=== PATIENT | male | born 1965 | race Caucasian/White ===

== ENCOUNTER 2017-05-14 16:42 | Inpatient (IN) | payer SELFPAY ==
[~2017-05-14] VITALS: Ht 180.3 cm; Wt 100.8 kg
[2017-05-14] MEDS ORDERED: normal saline 1000ML IV soln IVB ONE ×2 (17:00→18:35)
[2017-05-14 17:52] LABS: BASOPHILS # (AUTO) 0.1 X10'3 (0-0.2); EOSINOPHILS # (AUTO) 0.2 X10'3 (0-0.9); EOSINOPHILS % (AUTO) 2.3 % (0-6); HEMATOCRIT 33.9 % (42.0-52.0); HEMOGLOBIN 11.7 g/dl (14.0-17.9); LYMPHOCYTES # (AUTO) 1.3 X10'3 (1.1-4.8); LYMPHOCYTES % (AUTO) 16.3 % (21-51); MEAN CORPUSCULAR HEMOGLOBIN 34.1 PG (27.0-31.0); MEAN CORPUSCULAR HGB CONC 34.4 % (33.0-36.5); MEAN CORPUSCULAR VOLUME 99.1 FL (78-98); MEAN PLATELET VOLUME 7.7 FL (7.4-10.4); MONOCYTES # (AUTO) 0.9 X10'3 (0-0.9); MONOCYTES % (AUTO) 11.1 % (2-12); NEUTROPHILS # (AUTO) 5.6 X10'3 (1.8-7.7); NEUTROPHILS % (AUTO) 69.3 % (42-75); PLATELET COUNT 176 X10'3 (140-440); RED BLOOD COUNT 3.42 X10'6 (4.70-6.10); RED CELL DISTRIBUTION WIDTH 13.9 % (11.5-14.5)
[2017-05-14 17:53] LABS: CLARITY,URINE Clear (Clear); COLOR,URINE Yellow (Yellow); GLUCOSE, URINE 250 mg/dl (Neg); KETONES,URINE Negative (Neg); LEUKOCYTE ESTERASE ,URINE Negative (Neg); NITRITES, URINE Negative (Neg); OCCULT BLOOD,URINE Negative (Neg); PROTEIN,URINE Trace mg/dl (Neg); UROBILINOGEN,URINE 0.2 E.U/dL (0.2-1.0)
[2017-05-14 17:56] LABS: UA COLLECTION TYPE CLN CATCH MIDSTREAM
[2017-05-14 18:05] LABS: BACTERIA,URINE NONE SEEN /HPF (Neg); RBC,URINE NONE SEEN /HPF (0-2); SQUAMOUS EPITHELIAL CELL,UR NONE SEEN /LPF (FEW); WBC,URINE 0-4 /HPF (0-4)
[2017-05-14 18:05] LABS: ALANINE AMINOTRANSFERASE 58 U/L (12-78); ALBUMIN 3.5 G/DL (3.4-5.0); ALBUMIN/GLOBULIN RATIO 1.1 (1.1-1.5); ALKALINE PHOSPHATASE 56 IU/L (46-116); ANION GAP 13 (8-16); ASPARTATE AMINO TRANSFERASE 17 U/L (10-37); BILIRUBIN,TOTAL 0.3 MG/DL (0.1-1.0); BLOOD UREA NITROGEN 133 MG/DL (7-18); CALCIUM 8.2 MG/DL (8.5-10.1); CHLORIDE 103 MMOL/L (99-107); CREATININE 5.11 MG/DL (0.60-1.10); GLUCOSE 120 MG/DL (70-104); POTASSIUM 4.2 MMOL/L (3.5-5.1); SODIUM 140 MMOL/L (135-145); TOTAL CARBON DIOXIDE 24.2 MMOL/L (24-32); TOTAL PROTEIN 6.7 G/DL (6.4-8.2); eGFR 12 ML/MIN
[2017-05-14 18:06] LABS: MUCUS STRANDS NONE SEEN /LPF (Neg)
[2017-05-14] MEDS ORDERED: NO HOME MEDS (20:39)
[2017-05-14] MEDS ORDERED: acetaminophen 325mg tablet PO PRN (21:00)
[2017-05-14] MEDS ORDERED: ondansetron/PF 4mg/2ml inj IV PRN (21:00)
[2017-05-14] MEDS: normal saline 1000ml 1,000 ML IV SCH (21:06)
[2017-05-14 23:15] VITALS: BP 97/68
[2017-05-15 05:44] LABS: BASOPHILS # (AUTO) 0.1 X10'3 (0-0.2); BASOPHILS % (AUTO) 1.4 % (0-1); EOSINOPHILS # (AUTO) 0.4 X10'3 (0-0.9); EOSINOPHILS % (AUTO) 4.7 % (0-6); HEMATOCRIT 31.6 % (42.0-52.0); HEMOGLOBIN 10.8 g/dl (14.0-17.9); LYMPHOCYTES # (AUTO) 2.2 X10'3 (1.1-4.8); LYMPHOCYTES % (AUTO) 29.1 % (21-51); MEAN CORPUSCULAR HEMOGLOBIN 34.1 PG (27.0-31.0); MEAN CORPUSCULAR HGB CONC 34.1 % (33.0-36.5); MEAN CORPUSCULAR VOLUME 100.2 FL (78-98); MEAN PLATELET VOLUME 8.2 FL (7.4-10.4); MONOCYTES # (AUTO) 0.8 X10'3 (0-0.9); MONOCYTES % (AUTO) 10.7 % (2-12); NEUTROPHILS % (AUTO) 54.1 % (42-75); PLATELET COUNT 157 X10'3 (140-440); RED BLOOD COUNT 3.16 X10'6 (4.70-6.10); RED CELL DISTRIBUTION WIDTH 13.8 % (11.5-14.5); WHITE BLOOD COUNT 7.4 X10'3 (4.5-11.0)
[2017-05-15 05:56] LABS: ALBUMIN 3.2 G/DL (3.4-5.0); ANION GAP 11 (8-16); BLOOD UREA NITROGEN 113 MG/DL (7-18); BUN/CREATININE RATIO 31.4 (5.4-32.0); CALCIUM 7.7 MG/DL (8.5-10.1); CHLORIDE 108 MMOL/L (99-107); GLUCOSE 95 MG/DL (70-104); POTASSIUM 4.3 MMOL/L (3.5-5.1); SODIUM 143 MMOL/L (135-145); TOTAL CARBON DIOXIDE 23.7 MMOL/L (24-32); eGFR 18 ML/MIN
[2017-05-15 06:00] VITALS: BP 107/66
[2017-05-15] MEDS: normal saline 1000ml 1,000 ML IV SCH ×2 (07:36→16:59)
[2017-05-15 11:00] VITALS: BP 92/55
[2017-05-15 15:28] LABS: CLARITY,URINE CLEAR (Clear); COLOR,URINE STRAW (Yellow); GLUCOSE, URINE 500 mg/dl (Neg); KETONES,URINE NEGATIVE (Neg); LEUKOCYTE ESTERASE ,URINE NEGATIVE (Neg); NITRITES, URINE NEGATIVE (Neg); OCCULT BLOOD,URINE NEGATIVE (Neg); PH,URINE 5.5 (4.8-8.0); PROTEIN,URINE NEGATIVE (Neg); UROBILINOGEN,URINE 0.2 E.U/dL (0.2-1.0)
[2017-05-15 15:29] LABS: UA COLLECTION TYPE NON-SPECIFIED
[2017-05-15 15:40] LABS: CREATININE,URINE RANDOM 47.5 MG/DL; TOTAL PROTEIN,URINE RANDOM 9.8 MG/DL
[2017-05-15 16:27] LABS: UA EOSINOPHILS NO EOS /HPF
[2017-05-15 18:00] VITALS: BP 97/60
[2017-05-16] VITALS: BP 110/72
[2017-05-16] MEDS: normal saline 1000ml 1,000 ML IV SCH ×2 (03:24→14:56)
[2017-05-16 05:04] LABS: BASOPHILS # (AUTO) 0.1 X10'3 (0-0.2); BASOPHILS % (AUTO) 0.8 % (0-1); EOSINOPHILS # (AUTO) 0.5 X10'3 (0-0.9); EOSINOPHILS % (AUTO) 5.8 % (0-6); HEMATOCRIT 30.8 % (42.0-52.0); HEMOGLOBIN 10.6 g/dl (14.0-17.9); LYMPHOCYTES # (AUTO) 2.1 X10'3 (1.1-4.8); LYMPHOCYTES % (AUTO) 27.7 % (21-51); MEAN CORPUSCULAR HEMOGLOBIN 34.4 PG (27.0-31.0); MEAN CORPUSCULAR HGB CONC 34.4 % (33.0-36.5); MEAN PLATELET VOLUME 8.2 FL (7.4-10.4); MONOCYTES % (AUTO) 12.6 % (2-12); NEUTROPHILS # (AUTO) 4.1 X10'3 (1.8-7.7); NEUTROPHILS % (AUTO) 53.1 % (42-75); PLATELET COUNT 163 X10'3 (140-440); RED BLOOD COUNT 3.08 X10'6 (4.70-6.10); WHITE BLOOD COUNT 7.7 X10'3 (4.5-11.0)
[2017-05-16 05:14] LABS: ALBUMIN 3.2 G/DL (3.4-5.0); ANION GAP 9 (8-16); BLOOD UREA NITROGEN 70 MG/DL (7-18); BUN/CREATININE RATIO 32.9 (5.4-32.0); CALCIUM 7.5 MG/DL (8.5-10.1); CHLORIDE 109 MMOL/L (99-107); CREATININE 2.13 MG/DL (0.60-1.10); GLUCOSE 99 MG/DL (70-104); POTASSIUM 4.4 MMOL/L (3.5-5.1); SODIUM 144 MMOL/L (135-145); TOTAL CARBON DIOXIDE 26.2 MMOL/L (24-32); eGFR 33 ML/MIN
[2017-05-16 06:00] VITALS: BP 107/70
[2017-05-16 12:00] VITALS: BP 109/66
== END 2017-05-16 17:36 | disposition home or self-care (01) | DRG 684 ==
LOC: ER 16:43 → ED HOLD 20:59 → EDBEDREQ 21:45 → SUR 3N 22:00
PROVIDERS: ADMIT Internal Medicine; ATTEND Internal Medicine
DX: N17.9 Acute kidney failure, unspecified (principal); I95.9 Hypotension, unspecified; D64.9 Anemia, unspecified; F17.200 Nicotine dependence, unspecified, uncomplicated; I10 Essential (primary) hypertension; J06.9 Acute upper respiratory infection, unspecified; E86.0 Dehydration; R55 Syncope and collapse; Z60.2 Problems related to living alone; R00.0 Tachycardia, unspecified; Z79.899 Other long term (current) drug therapy; Z82.5 Family history of asthma and other chronic lower respiratory diseases; Z79.01 Long term (current) use of anticoagulants
CPT/HCPCS: 36415; 76775; 80048; 80053; 81001; 81003; 82570; 83935; 84133; 84156; 84300; 85025; 87070; 87207; 93005; 93975; 96360; 96361; 99285; A6258; J7030

== ENCOUNTER 2018-12-09 22:41 | Observation (INO) | payer SELFPAY ==
[~2018-12-09] VITALS: Ht 180.3 cm; Wt 104.5 kg
--- NOTE | 2018-12-09 23:00 | NUR ---
Pt states he has quit drinking alcohol twice before. States he has never had a seizure. He said he is on day 10 of not drinking.
[2018-12-10 02:02] LABS: BASOPHILS # (AUTO) 0.1 X10'3 (0-0.2); BASOPHILS % (AUTO) 0.6 % (0-1); EOSINOPHILS % (AUTO) 0.3 % (0-6); HEMATOCRIT 45.7 % (42.0-52.0); HEMOGLOBIN 15.8 g/dl (14.0-17.9); LYMPHOCYTES # (AUTO) 1.4 X10'3 (1.1-4.8); LYMPHOCYTES % (AUTO) 13.5 % (21-51); MEAN CORPUSCULAR HEMOGLOBIN 35.1 PG (27.0-31.0); MEAN CORPUSCULAR HGB CONC 34.7 g/dL (33.0-36.5); MEAN CORPUSCULAR VOLUME 101.3 FL (78-98); MEAN PLATELET VOLUME 8.8 FL (7.4-10.4); MONOCYTES # (AUTO) 1.5 X10'3 (0-0.9); MONOCYTES % (AUTO) 14.7 % (2-12); NEUTROPHILS # (AUTO) 7.2 X10'3 (1.8-7.7); NEUTROPHILS % (AUTO) 70.9 % (42-75); PLATELET COUNT 99 X10'3 (140-440); RED BLOOD COUNT 4.51 X10'6 (4.70-6.10); WHITE BLOOD COUNT 10.1 X10'3 (4.5-11.0)
[2018-12-10 02:04] LABS: CLARITY,URINE CLEAR (Clear); COLOR,URINE YELLOW (Yellow); GLUCOSE, URINE 500 mg/dl (Neg); KETONES,URINE TRACE mg/dl (Neg); LEUKOCYTE ESTERASE ,URINE NEGATIVE (Neg); NITRITES, URINE NEGATIVE (Neg); OCCULT BLOOD,URINE TRACE-INTACT (Neg); PROTEIN,URINE 100 mg/dl (Neg)
[2018-12-10 02:05] LABS: UA COLLECTION TYPE CLN CATCH MIDSTREAM
[2018-12-10 02:11] LABS: ALANINE AMINOTRANSFERASE 101 U/L (12-78); ALBUMIN 4.7 G/DL (3.4-5.0); ALBUMIN/GLOBULIN RATIO 1.3 (1.1-1.5); ALKALINE PHOSPHATASE 74 IU/L (46-116); ANION GAP 14 (8-16); ASPARTATE AMINO TRANSFERASE 47 U/L (10-37); BILIRUBIN,TOTAL 1.3 MG/DL (0.1-1.0); BLOOD UREA NITROGEN 43 MG/DL (7-18); BUN/CREATININE RATIO 24.2 (5.4-32.0); CALCIUM 8.8 MG/DL (8.5-10.1); CHLORIDE 95 MMOL/L (99-107); CREATININE 1.78 MG/DL (0.60-1.10); GLUCOSE 117 MG/DL (70-104); POTASSIUM 3.8 MMOL/L (3.5-5.1); SODIUM 136 MMOL/L (135-145); TOTAL PROTEIN 8.4 G/DL (6.4-8.2); eGFR 40 ML/MIN
[2018-12-10 02:13] LABS: BACTERIA,URINE FEW /HPF (Neg); MUCUS STRANDS FEW /LPF (Neg); RBC,URINE NONE SEEN /HPF (0-2); SQUAMOUS EPITHELIAL CELL,UR FEW /LPF (FEW); WBC,URINE 0-4 /HPF (0-4)
[2018-12-10] MEDS ORDERED: magnesium 4gm in 100ml NS 100 ML IV ONE ×2 (02:30→03:10)
--- NOTE | 2018-12-10 02:47 | NUR ---
I came into the room and he is sitting upright in bed and he is tremulous. I asked him if he was ok and he just was looking at me. He then said "that was weird." I asked him what happened and he said out of the blue he just started shaking all over. Lasted about 1 minute. He remembers event and is not post ictal. Informed him that his magnesium is low. Replacing it now. VSS.
[2018-12-10] MEDS ORDERED: LORazepam 2 mg/ml vial ONE ×2 (02:58→03:07)
[2018-12-10] MEDS ORDERED: magnesium 2GM in 50ml NS 50 ML IV ONE (03:10)
[2018-12-10] MEDS ORDERED: levetiracetam inj 1,500 MG in normal saline 100ml IV soln 85 ML IV ONE (03:15)
[2018-12-10] MEDS ORDERED: normal saline 1000ml 1,000 ML IV ONE ×2 (03:15→05:15)
--- NOTE | 2018-12-10 03:15 | NUR ---
at 030 there was a loud noise coming from his room, upon entry his arms are straight up in the air in a decorticate position and his face was purple. Oxygen NRB 15 L and suctioned immediately in his cheeks for clear saliva. His IV flew out. It was cobaned. Anoter IV 20 ga RAC immediately. at 301 he was given ativan 2 mg IV, he was placed into soft wrist restraints bilat. at BS at 310 he was starting to thrash again, so another ativan 2 mg IV adm. Another magnesium was started with volume 75 r/t approx 25 mls already infused. 032 dennise ordered, will start another IV line as they are not compatable.
[2018-12-10] MEDS ORDERED: cyanocobalamin 1,000 mcg/ml inj IM ONE (03:20)
[2018-12-10] MEDS ORDERED: levetiracetam-NS 1000mg/100ml 100 ML IV ONE (03:20)
[2018-12-10] MEDS ORDERED: Levetiracetam-NS 500mg/100ml 100 ML IV ONE (03:20)
[2018-12-10] MEDS ORDERED: thiamine 100mg/ml 2ml inj. IV ONE (03:20)
--- NOTE | 2018-12-10 03:21 | NUR ---
add note: he bit his tongue with his second seizure
--- NOTE | 2018-12-10 03:27 | NUR ---
pt going out to ct via gurney and portable oxygen and desk monitor, with Uriel GARCIA
[2018-12-10] MEDS ORDERED: ACYC-202 PO (03:32)
[2018-12-10 03:33] LABS: PHOSPHORUS 3.2 MG/DL (2.3-4.5)
[2018-12-10] MEDS ORDERED: KETO200T15 PO (03:33)
[2018-12-10] MEDS ORDERED: TADA5TAB2 PO (03:33)
[2018-12-10] MEDS ORDERED: LISI10TA4 PO (03:34)
--- NOTE | 2018-12-10 03:54 | NUR ---
He is awake, confused. Says his tongue is sore. Encouraged him to go to sleep. Lights are off.
[2018-12-10 05:50] LABS: URINE AMPHETAMINE SCREEN NEGATIVE (Neg); URINE BARBITUATE SCREEN NEGATIVE (Neg); URINE BENZODIAZEPINES SCREEN NEGATIVE (Neg); URINE CANNABINOID SCREEN NEGATIVE (Neg); URINE COCAINE SCREEN NEGATIVE (Neg); URINE METHADONE SCREEN NEGATIVE (Neg); URINE OPIATE SCREEN NEGATIVE (Neg); URINE PHENCYCLIDINE SCREEN NEGATIVE (Neg)
[2018-12-10 05:56] LABS: ETHANOL < 0.010 GM/DL (0.0-0.010)
--- NOTE | 2018-12-10 06:32 | NUR ---
TELE NEURO HAS BEEN INITIATED
[2018-12-10] MEDS ORDERED: LORazepam 2 mg/ml vial IV PRN (07:20)
[2018-12-10] MEDS ORDERED: magnesium hydroxide 30ml (MOM) UD suspension PO PRN (07:20)
[2018-12-10] MEDS ORDERED: mag hydrox/Alum hydrox/simeth 30ml oral suspension PO PRN (07:20)
[2018-12-10] MEDS ORDERED: acetaminophen 325mg tablet PO PRN (07:20)
[2018-12-10] MEDS ORDERED: ondansetron/PF 4mg/2ml inj IV PRN (07:20)
[2018-12-10] MEDS ORDERED: dextrose 50%-water 50ml dispensing syringe IV PRN (07:20)
[2018-12-10] MEDS: normal saline 1000ml 1,000 ML IV SCH ×2 (07:46→19:53)
[2018-12-10] MEDS ORDERED: MVI, adult No.4 with vit. K 10 ML in dextrose 5% water 500ml 500 ML IV SCH ×2 (08:00)
[2018-12-10] MEDS ORDERED: thiamine inj. 100 MG, folic acid inj. 2 MG in normal saline 100ml IV soln 100 ML IV SCH (08:00)
[2018-12-10] MEDS: heparin, porcine 5000 units/ml vial SQ SCH ×2 (08:07→19:59)
--- NOTE | 2018-12-10 10:45 | NUR ---
Patient in room ORTH[facility] 4015. I have received report from Dee GARCIA and had the opportunity to ask questions and assume patient care.
--- NOTE | 2018-12-10 10:58 | NUR ---
Pt arrived on floor, tucked in, provided comfort measures, pt is alert and oriented
[2018-12-10] MEDS ORDERED: Chloraseptic (Phenol) Spray 177ml MM PRN (13:35)
[2018-12-10 13:57] VITALS: BP 103/66
[2018-12-10 18:00] VITALS: BP 91/58
--- NOTE | 2018-12-10 18:09 | NUR ---
Problems reprioritized. Patient report given, questions answered & plan of care reviewed with Cindy Eckert RN.
[2018-12-10 22:00] VITALS: BP 107/72
[2018-12-11 02:00] VITALS: BP 118/80
[2018-12-11] MEDS: normal saline 1000ml 1,000 ML IV SCH ×2 (04:53→13:17)
--- NOTE | 2018-12-11 06:00 | NUR ---
Patient in room ORTHO 4015. I have received report from Cindy Eckert RN and had the opportunity to ask questions and assume patient care.
--- NOTE | 2018-12-11 06:12 | NUR ---
Problems reprioritized. Patient report given, questions answered & plan of care reviewed with RADHA Catherine.
[2018-12-11 06:20] VITALS: BP 114/72
[2018-12-11 06:22] LABS: BASOPHILS # (AUTO) 0.1 X10'3 (0-0.2); BASOPHILS % (AUTO) 0.7 % (0-1); EOSINOPHILS # (AUTO) 0.1 X10'3 (0-0.9); EOSINOPHILS % (AUTO) 1.6 % (0-6); HEMATOCRIT 33.4 % (42.0-52.0); HEMOGLOBIN 11.6 g/dl (14.0-17.9); LYMPHOCYTES # (AUTO) 1.5 X10'3 (1.1-4.8); LYMPHOCYTES % (AUTO) 17.7 % (21-51); MEAN CORPUSCULAR HEMOGLOBIN 35.3 PG (27.0-31.0); MEAN CORPUSCULAR HGB CONC 34.7 g/dL (33.0-36.5); MEAN CORPUSCULAR VOLUME 101.8 FL (78-98); MEAN PLATELET VOLUME 9.4 FL (7.4-10.4); MONOCYTES # (AUTO) 1.4 X10'3 (0-0.9); MONOCYTES % (AUTO) 15.9 % (2-12); NEUTROPHILS # (AUTO) 5.5 X10'3 (1.8-7.7); NEUTROPHILS % (AUTO) 64.1 % (42-75); PLATELET COUNT 90 X10'3 (140-440); RED BLOOD COUNT 3.28 X10'6 (4.70-6.10); WHITE BLOOD COUNT 8.6 X10'3 (4.5-11.0)
[2018-12-11 07:14] LABS: ALANINE AMINOTRANSFERASE 59 U/L (12-78); ALBUMIN 3.1 G/DL (3.4-5.0); ALBUMIN/GLOBULIN RATIO 1.1 (1.1-1.5); ALKALINE PHOSPHATASE 52 IU/L (46-116); ANION GAP 10 (8-16); ASPARTATE AMINO TRANSFERASE 33 U/L (10-37); BILIRUBIN,TOTAL 0.8 MG/DL (0.1-1.0); BLOOD UREA NITROGEN 27 MG/DL (7-18); BUN/CREATININE RATIO 21.4 (5.4-32.0); CALCIUM 7.7 MG/DL (8.5-10.1); CHLORIDE 106 MMOL/L (99-107); CREATININE 1.26 MG/DL (0.60-1.10); GLUCOSE 90 MG/DL (70-104); POTASSIUM 3.6 MMOL/L (3.5-5.1); SODIUM 140 MMOL/L (135-145); TOTAL CARBON DIOXIDE 24.5 MMOL/L (24-32); TOTAL PROTEIN 5.9 G/DL (6.4-8.2); eGFR 60 ML/MIN
[2018-12-11] MEDS ORDERED: thiamine 100mg tablet PO SCH (08:00)
[2018-12-11] MEDS ORDERED: folic acid 1mg tablet PO SCH (08:00)
[2018-12-11] MEDS ORDERED: lisinopril 20mg tablet PO SCH (08:00)
[2018-12-11] MEDS ORDERED: multivitamins, therapeutics tablet PO SCH (08:00)
[2018-12-11] MEDS: heparin, porcine 5000 units/ml vial SQ SCH (08:00)
[2018-12-11 10:00] VITALS: BP 108/65
--- NOTE | 2018-12-11 14:29 | NUR ---
PAGER ID: [phone] MESSAGE: Chaim Aguilar, Mr. Hamilton in [id number] is inquiring about the discharge, please advise thank you Dorene
[2018-12-11] MEDS ORDERED: KEP500T PO (14:45)
[2018-12-11] MEDS ORDERED: CHLO25CA10 PO (14:45)
--- NOTE | 2018-12-11 15:11 | NUR ---
Malnutrition consult: Pt admit w/ etoh withdrawal. Bit tongue during seizure in ED per EMR. Pt currently has no edema, weakness, BMI 32, and PO 100% regular diet meals since admit meeting needs. Pt fails to meet minimum malnutrition criteria at this time. Receiving PO thiamin/folic/MVI for etoh. Addendum: 12/11/18 at [address] Amended: Links added.
--- NOTE | 2018-12-11 16:00 | NUR ---
Reviewed discharge instructions/medications with pt. Pt verbalized understanding. Pt is alert, oriented and in good spirits. Pt was wheeled downstairs to be driven home by a friend. All of pt's belongings were returned to pt.
[2018-12-12] MEDS ORDERED: LORazepam 1 MG tablet PO PRN (07:20)
[2018-12-12] MEDS ORDERED: LORazepam 2 mg/ml vial IV PRN (07:20)
[2018-12-14] MEDS ORDERED: LORazepam 1 MG tablet PO PRN (07:20)
[2018-12-14] MEDS ORDERED: LORazepam 2 mg/ml vial IV PRN (07:20)
== END 2018-12-11 16:00 | disposition home or self-care (01) ==
LOC: ER 22:41 → ORTHO 4S 12-10 10:28 → CMPBEDREQ 12-10 19:25
PROVIDERS: ADMIT Family Medicine; ATTEND Family Medicine
DX: E83.42 Hypomagnesemia (principal); F10.239 Alcohol dependence with withdrawal, unspecified; I10 Essential (primary) hypertension; F17.210 Nicotine dependence, cigarettes, uncomplicated
CPT/HCPCS: 36415; 70450; 80053; 80305; 80320; 81001; 83735; 84100; 85025; 87081; 93005; 95816; 96365; 96366; 96367; 96368; 96372; 96375; 99284; G0378; J1644; J1953; J2060; J3411; J3420; J3475; J3490; J7030; J7060; 99285

== ENCOUNTER 2019-01-09 20:44 | Emergency (ER) | payer OTHER ==
[~2019-01-09] VITALS: Ht 180.3 cm; Wt 100.0 kg
[~2019-01-09 20:44] MED LIST: ACYC-202 PO; CHLO25CA10 PO; KEP500T PO; KETO200T15 PO; LISI10TA4 PO; TADA5TAB2 PO
[2019-01-09] MEDS ORDERED: phenobarbital inj 260 MG in normal saline 100ml IV soln 99 ML IV STA (20:51)
[2019-01-09] MEDS ORDERED: ondansetron/PF 4mg/2ml inj IV ONE (20:55)
[2019-01-09] MEDS ORDERED: magnesium 2GM in 50ml NS 50 ML IV ONE (20:55)
[2019-01-09] MEDS ORDERED: normal saline 1000ML IV soln IVB ONE (20:55)
[2019-01-09] MEDS ORDERED: TETanus/Pertussis (Acell)/Diphther VAC/PF (Tdap-Adult) 0.5ml syringe IM ONE (20:55)
[2019-01-09] MEDS ORDERED: LIDOcaine 1% w/epiNEPHrine 1:200,000 30ml vial IM ONE (20:55)
[2019-01-09] MEDS ORDERED: thiamine inj. 100 MG in normal saline 100ml IV soln 99 ML IV ONE (20:55)
[2019-01-09] MEDS ORDERED: thiamine 100mg/ml 2ml inj. IV ONE (21:05)
[2019-01-09 21:09] LABS: EOSINOPHILS % (AUTO) 0.4 % (0-6); HEMOGLOBIN 13.8 g/dl (14.0-17.9); MEAN CORPUSCULAR HEMOGLOBIN 34.5 PG (27.0-31.0); MONOCYTES # (AUTO) 0.7 X10'3 (0-0.9); PLATELET COUNT 220 X10'3 (140-440)
[2019-01-09 21:10] LABS: BASOPHILS # (AUTO) 0.1 X10'3 (0-0.2); BASOPHILS % (AUTO) 1.5 % (0-1); HEMATOCRIT 39.4 % (42.0-52.0); LYMPHOCYTES % (AUTO) 36.6 % (21-51); MEAN CORPUSCULAR HGB CONC 35.1 g/dL (33.0-36.5); MEAN CORPUSCULAR VOLUME 98.5 FL (78-98); MEAN PLATELET VOLUME 5.7 FL (7.4-10.4); NEUTROPHILS # (AUTO) 2.7 X10'3 (1.8-7.7); NEUTROPHILS % (AUTO) 48.5 % (42-75); RED CELL DISTRIBUTION WIDTH 13.9 % (11.5-14.5); WHITE BLOOD COUNT 5.5 X10'3 (4.5-11.0)
--- NOTE | 2019-01-09 21:12 | NUR ---
SEIZURE PADS SETUP FOR PATIENT.
[2019-01-09 21:30] LABS: ALANINE AMINOTRANSFERASE 79 U/L (12-78); ALBUMIN 3.9 G/DL (3.4-5.0); ALBUMIN/GLOBULIN RATIO 1.2 (1.1-1.5); ALKALINE PHOSPHATASE 92 IU/L (46-116); ANION GAP 16 (8-16); ASPARTATE AMINO TRANSFERASE 54 U/L (10-37); BILIRUBIN,TOTAL 0.6 MG/DL (0.1-1.0); BLOOD UREA NITROGEN 11 MG/DL (7-18); BUN/CREATININE RATIO 13.1 (5.4-32.0); CALCIUM 8.7 MG/DL (8.5-10.1); CHLORIDE 105 MMOL/L (99-107); CREATININE 0.84 MG/DL (0.60-1.10); GLUCOSE 80 MG/DL (70-104); POTASSIUM 3.8 MMOL/L (3.5-5.1); SODIUM 146 MMOL/L (135-145); TOTAL CARBON DIOXIDE 25.4 MMOL/L (24-32); TOTAL PROTEIN 7.1 G/DL (6.4-8.2); eGFR > 90 ML/MIN
[2019-01-09] MEDS ORDERED: LIDOcaine 1% W/epiNEPHrine 1:100,000 20ml vial IJ ONE (21:35)
[2019-01-09 21:40] LABS: CKMB RELATIVE INDEX 1.2 RATIO (0-2.5); CREATINE KINASE 158 U/L (39-308); MAGNESIUM 1.8 MG/DL (1.5-2.4)
[2019-01-09 21:59] LABS: ETHANOL 0.403 GM/DL (0.0-0.010)
--- NOTE | 2019-01-09 22:04 | NUR ---
MD LOZANO CLEARED C-SPINE, C-COLLAR REMOVED.
--- NOTE | 2019-01-10 00:11 | NUR ---
PT RESTING IN BED, APPEARS IN NO DISTRESS, WAITING FOR ED MD FOR SUTURES.
[2019-01-10 02:03] VITALS: BP 147/92
--- NOTE | 2019-01-10 03:35 | NUR ---
PT GAIT TESTED WALKED APPROX 100 FT AROUND ER WITH NO ASSITANCE. AWARE.
== END 2019-01-10 05:11 | disposition home or self-care (01) ==
LOC: ER 20:45
DX: S06.0X0A Concussion without loss of consciousness, initial encounter (principal); S01.81XA Laceration without foreign body of other part of head, initial encounter; F10.229 Alcohol dependence with intoxication, unspecified; I10 Essential (primary) hypertension; Z79.899 Other long term (current) drug therapy; Z79.2 Long term (current) use of antibiotics; W18.09XA Striking against other object with subsequent fall, initial encounter; Y93.89 Activity, other specified; Y92.89 Other specified places as the place of occurrence of the external cause; Y99.8 Other external cause status
CPT/HCPCS: 12013; 36415; 70450; 70486; 72125; 80053; 80320; 82550; 82553; 83735; 85025; 90471; 90715; 93005; 96365; 96366; 96368; 96375; 99284; J2405; J2560; J3411; J3475; J7030; 12011